=== PATIENT | female | born 1955 | race Caucasian/White ===

== ENCOUNTER → 2017-04-30 | Outpatient (CLI) | payer OTHER ==
[~2017-04-30] MED LIST: FOSAMAX 70 MG T70 MG PO; HYDROCODONE-AP1 EAC6 PO; LISINOPRIL10 MG PO; SENOKOT-S1 TA1 PO; VITAMIN D1000 UNI1 PO; VITAMINC500 PO
== END ==
LOC: M.CT 07:57
DX: N20.0 Calculus of kidney (principal); Z90.49 Acquired absence of other specified parts of digestive tract